=== PATIENT | male | born 1970 | race African-American/Black ===

== ENCOUNTER 2017-03-14 10:45 | Emergency (ER) | payer MEDICAID ==
[~2017-03-14] VITALS: Ht 170.2 cm; Wt 94.8 kg
[~2017-03-14 10:45] MED LIST: AMLO10TA4 PO; ATOR40TA70 PO; NAPR375T5 PO
[2017-03-14 10:58] VITALS: BP 116/69
== END 2017-03-14 16:04 | disposition left against medical advice (07) ==
LOC: ER 12:03
DX: T78.40XA Allergy, unspecified, initial encounter (principal); X58.XXXA Exposure to other specified factors, initial encounter; Z53.21 Procedure and treatment not carried out due to patient leaving prior to being seen by health care provider

== ENCOUNTER 2023-06-03 03:42 | Emergency (ER) | payer MEDICAID ==
[~2023-06-03] VITALS: Ht 170.2 cm; Wt 68.0 kg
[2023-06-03 03:46] VITALS: BP 154/98; PULSE 106; RESP 18; TEMP 98.6; O2SAT 100
== END 2023-06-03 07:31 | disposition left against medical advice (07) ==
LOC: ER 05:01
DX: R51.9 Headache, unspecified (principal); Z53.21 Procedure and treatment not carried out due to patient leaving prior to being seen by health care provider
CPT/HCPCS: 99281